=== PATIENT | male | born 1965 | race Caucasian/White ===

== ENCOUNTER 2019-01-14 14:02 | Inpatient (IN) ==
[2019-01-14] MEDS ORDERED: methylPREDNISolone 125 MG/2 ML VIAL IV STA (14:29)
[2019-01-14] MEDS ORDERED: ALBUT/IPRATROP 3MG/0.5MG NEB 3 ML VIAL NEB STA ×3 (14:31→17:14)
--- NOTE | 2019-01-14 14:40 | XRay Report ---
SINGLE VIEW CHEST CLINICAL HISTORY: Dyspnea. FINDINGS: 2 AP, portable, upright chest radiograph is compared to study dated 10/23/2018. The examinat ion is degraded by portable technique and apical lordotic positioning. The cardiomediastinal silhouet te is unremarkable noting atherosclerotic calcification of the thoracic aorta. The lungs and pleural spaces are clear. No pneumothorax is seen. The bony thorax is grossly intact. IMPRESSION: No active disease in the chest. Electronically signed by: Uriah Botello M.D. 01/14/2019 2:39 PM
--- NOTE | 2019-01-14 14:51 | Emergency Department Note ---
Entered by Rachelle Lew acting as a scribe for History of Present Illness General Chief complaint: Shortness of Breath/Dyspnea Stated complaint: SOB Time Seen by Provider: 01/14/19 14:18 Source: patient History of Present Illness Provider complaint: Shortness of Breath/Dyspnea Onset (ago): month(s) 2 Location: chest Maximum Pain Intensity: 8 Relieved By: + none Exacerbated By: + movement Associated symptoms: + denies other symptoms (Pedal edema), + cough (With white pleghm and no blood) and + other (Runny nose); no chest pain and no fever/chills The patient is a 53 year old male who presents to the Emergency Room with complaints of shortness of breath/dyspnea that began 2 months ago. The patient notes that he was at the ED 2 months ago and was diagnosed with asthmatic bronchitis and it never got any better. The patient states the symptoms are exacerbated by movement and not relieved by anything specific. The patient reports experiencing a cough that is bringing up white phlegm but no blood with a runny nose that began about 2 days ago. The patient denies experiencing any pedal edema, chest pain, or fever/chills. The patient denies taking any blood thinners or going on any recent travels. Home Medications Home Medications Medication Instructions Recorded Confirmed Type No Known Home Medications 01/14/19 01/14/19 History Allergies Allergy/AdvReac Type Severity Reaction Status Date / Time No Known Allergies Allergy Verified 01/14/19 15:12 Past Med/Surg History Medical History Bronchitis Oct 2018 Colon polyp Hand laceration involving tendon (Acute) Hyperlipidemia Kidney stones currently Surgical History H/O eye surgery Left orbit fracture with plate History of colonoscopy Family History Father Diabetes Other No pertinent family history in first degree relatives Social History Preferred Language: Latvian Communication Ability: Effective Crop Nutrition Scientist Required: No Beliefs That Will Affect Care: None marital status: Single Current Living Situation: Parent current occupational status: employed 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 and A total of 10 systems reviewed and were otherwise negative Physical Exam Vital Signs Vital Signs - 24 hr 01/14/19 14:05 01/14/19 14:38 01/14/19 14:47 Temperature 36.3 C L Temperature Source Oral Pulse Rate 114 H Pulse Rate [Right Finger] Pulse Rhythm [Right Finger] Pulse Strength [Right Finger] Respiratory Rate 20 Respiratory Effort / Characteristics Respiratory Depth Respiratory Pattern Blood Pressure 154/83 H Blood Pressure [Right Arm] Blood Pressure Mean 106 Blood Pressure Mean [Right Arm] Blood Pressure Position [Right Arm] Pulse Oximetry 91 98 98 Oxygen Delivery Method Room Air Room Air Sepsis Recent Fever Within 48 Hours No Sepsis New/Unexplained Change in Mental Status No Sepsis Action Taken by Nursing No Action Required 01/14/19 14:49 01/14/19 16:03 01/14/19 16:22 Temperature Temperature Source Pulse Rate Pulse Rate [Right Finger] 102 H 99 H 88 Pulse Rhythm [Right Finger] Regular Pulse Strength [Right Finger] Normal Respiratory Rate 18 18 18 Respiratory Effort / Characteristics Non-Labored Spontaneous Non-Labored Spontaneous Non-Labored Spontaneous Respiratory Depth Normal Respiratory Pattern Regular Blood Pressure Blood Pressure [Right Arm] 137/93 Blood Pressure Mean Blood Pressure Mean [Right Arm] 107 Blood Pressure Position [Right Arm] Lying Pulse Oximetry 94 97 97 Oxygen Delivery Method Room Air Room Air Room Air Sepsis Recent Fever Within 48 Hours Sepsis New/Unexplained Change in Mental Status Sepsis Action Taken by Nursing 01/14/19 17:25 01/14/19 17:38 Temperature Temperature Source Pulse Rate Pulse Rate [Right Finger] 96 H 102 H Pulse Rhythm [Right Finger] Regular Pulse Strength [Right Finger] Normal Respiratory Rate 18 18 Respiratory Effort / Characteristics Non-Labored Spontaneous Non-Labored Spontaneous Respiratory Depth Normal Respiratory Pattern Regular Blood Pressure Blood Pressure [Right Arm] 135/80 Blood Pressure Mean Blood Pressure Mean [Right Arm] 98 Blood Pressure Position [Right Arm] Lying Pulse Oximetry 97 97 Oxygen Delivery Method Room Air Room Air Sepsis Recent Fever Within 48 Hours Sepsis New/Unexplained Change in Mental Status Sepsis Action Taken by Nursing GENERAL: The patient is awake and alert. He is somewhat anxious appearing. EYES: The conjunctivae are clear. The pupils are round and reactive. EARS, NOSE, MOUTH AND THROAT: The nose is without any evidence of any deformity. Mucous membranes are moist tongue is midline NECK: The neck is nontender and supple. RESPIRATORY: Shallow respirations were noted. There is expiratory wheezing noted in all lung lazaro. Mild conversational dyspnea was noted. CARDIOVASCULAR: Tachycardic rate with regular rhythm was noted. No definite murmur was noted. GASTROINTESTINAL: The abdomen is soft. Abdomen is nontender MUSCULOSKELETAL/EXTREMITIES: There is no evidence of gross deformity full range of motion is noted in the hips and shoulders SKIN: There is no obvious evidence of any rash. There are no petechiae, pallor or cyanosis noted. No calf tenderness was elicited. NEUROLOGIC: Patient is awake alert and oriented x3. Course Course 1428: Past medical records reviewed. The patient was evaluated in room C04. A complete history and physical exam was performed. 1715: I reevaluated and discussed test results with the patient. The patient is still having problems breathing and will be given another breathing treatment. 1851: I spoke with Dr. Madeline Del Angel- Hospitalist about the patient's case and she will accept the patient for further evaluation. Administered Medications Discontinued Medications Albuterol (Duoneb) 3 ml NEB NOW STA Stop: 01/14/19 14:32 Last Admin: 01/14/19 14:49 Dose: 3 ml Documented by: [id number] Albuterol (Duoneb) 3 ml NEB NOW STA Stop: 01/14/19 16:14 Last Admin: 01/14/19 16:22 Dose: 3 ml Documented by: [id number] Albuterol (Duoneb) 3 ml NEB NOW STA Stop: 01/14/19 17:15 Last Admin: 01/14/19 17:24 Dose: 3 ml Documented by: [id number] Sodium Chloride (Nss 1000ml) 500 mls @ 999 mls/hr IV .Q31M ONE Stop: 01/14/19 17:44 Last Infusion: 01/14/19 17:50 Dose: 0 mls/hr Documented by: [id number] Admin: 01/14/19 17:19 Dose: 999 mls/hr Documented by: [id number] Methylprednisolone (Solumedrol) 125 mg IV NOW STA Stop: 01/14/19 14:30 Last Admin: 01/14/19 14:53 Dose: 125 mg Documented by: [id number] Critical Care Time Critical Care Time: Yes Total Critical Care Time: 60 I have personally spent approximately 60 minutes of critical care time in the direct management of this patient. This includes bedside care, interpretation of diagnostic studies, and testing, discussion with consultants, patient, and family members, and other required patient management activities. This approximate 60 minutes is in excess of all separately billable procedures. Medical Decision Making Differential Diagnosis Differential diagnosis: Etiologies such as infections, reactive airway disease, COPD, pneumonia, pleural effusion, pulmonary edema, ARDS, pneumothorax, CHF, cardiac ischemia, cardiac tamponade, dysrhythmia, anemia, pulmonary embolism, musculoskeletal, gastrointes tinal process, as well as others were entertained. Medical Records Attestation: I reviewed the patient's medical records. Home Medications Current Medication List: was personally reviewed by me Laboratory Data Attestation: I reviewed the patient's lab results. Result diagrams: 01/14/19 14:39 01/14/19 14:39 Lab Results 01/14/19 01/14/19 01/14/19 Range/Units 14:39 14:39 14:39 WBC 8.08 (4.8-10.8) K/uL RBC 4.73 (4.7-6.1) M/uL Hgb 15.7 (14.0-18.0) g/dL Hct 45.4 (42-52) % MCV 96.0 (80-100) fL MCH 33.2 (25-34) pg MCHC 34.6 (32-36) g/dL RDW Std Deviation 46.7 H (36.4-46.3) fL RDW Coeff of Ericka 13.2 (11.5-14.5) % Plt Count 237 (130-400) K/uL MPV 9.5 (7.4-10.4) fL Immature Gran % (Auto) 0.2 % Neut % (Auto) 73.5 % Lymph % (Auto) 16.2 % Orange % (Auto) 7.5 % Eos % (Auto) 2.2 % Baso % (Auto) 0.4 % Immature Gran # (Auto) 0.02 (0.00-0.02) K/uL Neut # (Auto) 5.93 (1.4-6.5) K/uL Lymph # (Auto) 1.31 (1.2-3.4) K/uL Orange # (Auto) 0.61 H (0.11-0.59) K/uL Eos # (Auto) 0.18 (0-0.5) K/uL Baso # (Auto) 0.03 (0-0.2) K/uL PT (9.0-12.0) Seconds INR (0.9-1.1) APTT (21.0-31.0) Seconds PTT Ratio VBG pH 7.38 (7.36-7.41) VBG pCO2 43 (38-50) mmHg VBG pO2 28 mmHg VBG HCO3 25 mmol/L VBG O2 Saturation < 60.0 % VBG Base Excess -0.8 mEq/L Barometric Pressure 724.8 mm/Hg Sodium (136-145) mmol/L Potassium (3.5-5.1) mmol/L Chloride (98-107) mmol/L Carbon Dioxide (21-32) mmol/L Anion Gap (3-11) BUN (7-18) mg/dl Creatinine (0.6-1.4) mg/dl Est Cr Clr Drug Dosing ml/min Est GFR ( Amer) Est GFR (Non-Af Amer) BUN/Creatinine Ratio (10-20) Glucose (70-99) mg/dl Calcium (8.5-10.1) mg/dl Magnesium Cancelled Total Bilirubin (0.2-1) mg/dl AST (15-37) U/L ALT (12-78) U/L Alkaline Phosphatase (45-117) U/L Troponin I Cancelled Total Protein (6.4-8.2) gm/dl Albumin (3.4-5.0) gm/dl Globulin (2.5-4.0) gm/dl Albumin/Globulin Ratio (0.9-2) Urine Color Urine Appearance (Clear) Urine pH (4.5-7.5) Ur Specific [place] (1.000-1.030) Urine Protein (Negative) Urine Glucose (UA) (Negative) Urine Ketones (Negative) Urine Blood (Negative) Urine Nitrite (Negative) Urine Bilirubin (Negative) Urine Urobilinogen (Negative) Ur Leukocyte Esterase (Negative) Influenza Type A (PCR) (Neg) Influenza Type B (PCR) (Neg) 01/14/19 01/14/19 01/14/19 Range/Units 14:39 14:39 15:19 WBC (4.8-10.8) K/uL RBC (4.7-6.1) M/uL Hgb (14.0-18.0) g/dL Hct (42-52) % MCV (80-100) fL MCH (25-34) pg MCHC (32-36) g/dL RDW Std Deviation (36.4-46.3) fL RDW Coeff of Ericka (11.5-14.5) % Plt Count (130-400) K/uL MPV (7.4-10.4) fL Immature Gran % (Auto) % Neut % (Auto) % Lymph % (Auto) % Orange % (Auto) % Eos % (Auto) % Baso % (Auto) % Immature Gran # (Auto) (0.00-0.02) K/uL Neut # (Auto) (1.4-6.5) K/uL Lymph # (Auto) (1.2-3.4) K/uL Orange # (Auto) (0.11-0.59) K/uL Eos # (Auto) (0-0.5) K/uL Baso # (Auto) (0-0.2) K/uL PT 10.1 (9.0-12.0) Seconds INR 1.0 (0.9-1.1) APTT 23.8 (21.0-31.0) Seconds PTT Ratio 0.9 VBG pH (7.36-7.41) VBG pCO2 (38-50) mmHg VBG pO2 mmHg VBG HCO3 mmol/L VBG O2 Saturation % VBG Base Excess mEq/L Barometric Pressure mm/Hg Sodium 135 L (136-145) mmol/L Potassium 3.6 (3.5-5.1) mmol/L Chloride 106 (98-107) mmol/L Carbon Dioxide 24 (21-32) mmol/L Anion Gap 5.0 (3-11) BUN 11 (7-18) mg/dl Creatinine 1.05 (0.6-1.4) mg/dl Est Cr Clr Drug Dosing 101.7 ml/min Est GFR ( Amer) 92.8 Est GFR (Non-Af Amer) 80.1 BUN/Creatinine Ratio 10.2 (10-20) Glucose 105 H (70-99) mg/dl Calcium 9.2 (8.5-10.1) mg/dl Magnesium 2.2 Total Bilirubin 1.8 H (0.2-1) mg/dl AST 233 H (15-37) U/L ALT 877 H (12-78) U/L Alkaline Phosphatase 174 H (45-117) U/L Troponin I < 0.015 Total Protein 7.5 (6.4-8.2) gm/dl Albumin 4.0 (3.4-5.0) gm/dl Globulin 3.5 (2.5-4.0) gm/dl Albumin/Globulin Ratio 1.1 (0.9-2) Urine Color Dark Yellow Urine Appearance Clear (Clear) Urine pH 5.5 (4.5-7.5) Ur Specific [place] 1.023 (1.000-1.030) Urine Protein Negative (Negative) Urine Glucose (UA) Negative (Negative) Urine Ketones Trace H (Negative) Urine Blood Negative (Negative) Urine Nitrite Negative (Negative) Urine Bilirubin 1+ H (Negative) Urine Urobilinogen Negative (Negative) Ur Leukocyte Esterase Negative (Negative) Influenza Type A (PCR) (Neg) Influenza Type B (PCR) (Neg) 01/14/19 Range/Units 16:35 WBC (4.8-10.8) K/uL RBC (4.7-6.1) M/uL Hgb (14.0-18.0) g/dL Hct (42-52) % MCV (80-100) fL MCH (25-34) pg MCHC (32-36) g/dL RDW Std Deviation (36.4-46.3) fL RDW Coeff of Ericka (11.5-14.5) % Plt Count (130-400) K/uL MPV (7.4-10.4) fL Immature Gran % (Auto) % Neut % (Auto) % Lymph % (Auto) % Orange % (Auto) % Eos % (Auto) % Baso % (Auto) % Immature Gran # (Auto) (0.00-0.02) K/uL Neut # (Auto) (1.4-6.5) K/uL Lymph # (Auto) (1.2-3.4) K/uL Orange # (Auto) (0.11-0.59) K/uL Eos # (Auto) (0-0.5) K/uL Baso # (Auto) (0-0.2) K/uL PT (9.0-12.0) Seconds INR (0.9-1.1) APTT (21.0-31.0) Seconds PTT Ratio VBG pH (7.36-7.41) VBG pCO2 (38-50) mmHg VBG pO2 mmHg VBG HCO3 mmol/L VBG O2 Saturation % VBG Base Excess mEq/L Barometric Pressure mm/Hg Sodium (136-145) mmol/L Potassium (3.5-5.1) mmol/L Chloride (98-107) mmol/L Carbon Dioxide (21-32) mmol/L Anion Gap (3-11) BUN (7-18) mg/dl Creatinine (0.6-1.4) mg/dl Est Cr Clr Drug Dosing ml/min Est GFR ( Amer) Est GFR (Non-Af Amer) BUN/Creatinine Ratio (10-20) Glucose (70-99) mg/dl Calcium (8.5-10.1) mg/dl Magnesium Total Bilirubin (0.2-1) mg/dl AST (15-37) U/L ALT (12-78) U/L Alkaline Phosphatase (45-117) U/L Troponin I Total Protein (6.4-8.2) gm/dl Albumin (3.4-5.0) gm/dl Globulin (2.5-4.0) gm/dl Albumin/Globulin Ratio (0.9-2) Urine Color Urine Appearance (Clear) Urine pH (4.5-7.5) Ur Specific [place] (1.000-1.030) Urine Protein (Negative) Urine Glucose (UA) (Negative) Urine Ketones (Negative) Urine Blood (Negative) Urine Nitrite (Negative) Urine Bilirubin (Negative) Urine Urobilinogen (Negative) Ur Leukocyte Esterase (Negative) Influenza Type A (PCR) Neg for Influ A (Neg) Influenza Type B (PCR) Neg for Influ B (Neg) Imaging Data Radiologist's Impression: Radiology results as stated below per my review and the radiologist's interpretation: SINGLE VIEW CHEST CLINICAL HISTORY: Dyspnea. FINDINGS: 2 AP, portable, upright chest radiograph is compared to study dated 10/23/2018. The examination is degraded by portable technique and apical lordotic positioning. The cardiomediastinal silhouette is unremarkable noting atherosclerotic calcification of the thoracic aorta. The lungs and pleural spaces are clear. No pneumothorax is seen. The bony thorax is grossly intact. IMPRESSION: No active disease in the chest. Electronically signed by: Uriah Botello M.D. 01/14/2019 2:39 PM ECG Data Attestation: I personally reviewed and interpreted this ECG as follows: Indication: + SOB/dyspnea Rate (beats per minute): [address] segments: + Normal ST segments ECG Findings: no PACs and no PVCs Comparison ECG Date: from (10/23/18) Change: no significant change Blood Pressure Blood Pressure Findings: Elevated blood pressure Blood Pressure Disposition: further management by hospitalist ELMA Norris The patient is a 53-year-old male who presented to the emergency department with complaints of shortness of breath. The patient describes tightness and wheezing. The patient has had symptoms which have been ongoing for quite some time. He does have a history of smoking and was seen in our facility 2 months ago with similar complaints. The patient has since stopped smoking. His history and physical exam do appear to be consistent with COPD. The patient was treated with multiple bronchodilator nebulizers as well as IV steroids and IV fluids. He was reevaluated multiple times. He continues to have very significant symptoms especially with any exertion. Between the second and third DuoNeb the patient did have an oxygen saturation of 87 to 80% on room air. At rest and after his third nebulizer treatment this did improve. I discussed the patient's laboratory and radiographic studies with him. I discussed his case with the on-call [facility] hospitalist. They have agreed to evaluate the patient in the emergency department for further management disposition. Impression & Plan COPD exacerbation, Shortness of breath Discharge Plan Visit Data Chief Complaint: Shortness of Breath/Dyspnea Stated Complaint: SOB ED Provider: Shahzad Stout Discharge Problem: COPD exacerbation, Shortness of breath Forms Stand Alone Forms: My [facility] [employer] Prescriptions Prescriptions: No Action No Known Home Medications RF: 0 The scribe's documentation has been prepared under my direction and personally reviewed by me in its entirety. I confirm that the note above accurately reflects all work, treatment, procedures, and medical decision making performed by me.
[2019-01-14 14:53] LABS: Basophils # (auto) 0.03 K/uL (0-0.2); Basophils % (auto) 0.4 %; Eosinophils # (auto) 0.18 K/uL (0-0.5); Eosinophils % (auto) 2.2 %; Hematocrit (blood only) 45.4 % (42-52); Hemoglobin 15.7 g/dL (14.0-18.0); Immature Granulocytes # (auto) 0.02 K/uL (0.00-0.02); Immature Granulocytes % (auto) 0.2 %; Lymphocytes # (auto) 1.31 K/uL (1.2-3.4); Lymphocytes % (auto) 16.2 %; Mean Corpuscular Hemoglobin 33.2 pg (25-34); Mean Corpuscular Hgb Conc 34.6 g/dL (32-36); Mean Platelet Volume 9.5 fL (7.4-10.4); Monocytes # (auto) 0.61 K/uL (0.11-0.59); Monocytes % (auto) 7.5 %; Neutrophils # (auto) 5.93 K/uL (1.4-6.5); Neutrophils % (auto) 73.5 %; Platelet Count 237 K/uL (130-400); RDW Coefficient of Variation 13.2 % (11.5-14.5); RDW Standard Deviation 46.7 fL (36.4-46.3); Red Blood Count 4.73 M/uL (4.7-6.1); White Blood Count 8.08 K/uL (4.8-10.8)
[2019-01-14 15:04] LABS: Partial Thromboplastin Ratio 0.9; Partial Thromboplastin Time 23.8 Seconds (21.0-31.0); Prothrombin Time 10.1 Seconds (9.0-12.0)
[2019-01-14 15:14] LABS: Base Excess VBG -0.8 mEq/L; HCO3 VBG 25 mmol/L; PCO2 VBG 43 mmHg (38-50); PO2 VBG 28 mmHg; pH VBG 7.38 (7.36-7.41)
[2019-01-14 15:15] LABS: Oxygen Saturation VBG < 60.0 %
[2019-01-14 15:29] LABS: Alanine Aminotransferase 877 U/L (12-78); Albumin Globulin Ratio 1.1 (0.9-2); Alkaline Phosphatase 174 U/L (45-117); Aspartate Aminotransferase 233 U/L (15-37); BUN Creatinine Ratio 10.2 (10-20); Bilirubin,Total 1.8 mg/dl (0.2-1); Blood Urea Nitrogen 11 mg/dl (7-18); Calcium 9.2 mg/dl (8.5-10.1); Carbon Dioxide 24 mmol/L (21-32); Chloride 106 mmol/L (98-107); Creatinine Clr Calc Pharmacy 101.7 ml/min; Est GFR (African American) 92.8; Est GFR (Non-African American) 80.1; Globulin 3.5 gm/dl (2.5-4.0); Glucose 105 mg/dl (70-99); Magnesium 2.2 mg/dl (1.8-2.4); Potassium 3.6 mmol/L (3.5-5.1); Sodium 135 mmol/L (136-145); Total Protein 7.5 gm/dl (6.4-8.2); Troponin I < 0.015 ng/ml (0-0.045)
[2019-01-14 15:50] LABS: Appearance Urine Clear (Clear); Blood Urine Negative (Negative); Color Urine Dark Yellow; Glucose Urine UA Negative (Negative); Ketones Urine Trace (Negative); Leukocyte Esterase Urine Negative (Negative); Nitrite Urine Negative (Negative); Protein Urine Negative (Negative); Specific Gravity Urine 1.023 (1.000-1.030); Urobilinogen Urine Negative (Negative); pH Urine 5.5 (4.5-7.5)
[2019-01-14 15:58] LABS: Bilirubin Urine 1+ (Negative)
[2019-01-14 15:59] LABS: Ictotest Urine Positive (Negative)
[2019-01-14 17:12] LABS: Influenza A virus by PCR Neg for Influ A (Neg); Influenza B virus by PCR Neg for Influ B (Neg)
[2019-01-14] MEDS ORDERED: SODIUM CHLORIDE 0.9% 1000ML 500 ML IV ONE (17:14)
--- NOTE | 2019-01-14 20:27 | History & Physical Report ---
Date of Service January 14, 2019 Assessment & Plan (1) Shortness of breath: 53-year-old male was admitted on 14 January 2019 for shortness of breath and COPD exacerbation Shortness of breath, COPD exacerbation: Some level of shortness of breath for the past 10 weeks, perhaps worse in the past couple of days. No overt CP with this. Do not suspect ACS. Likely has completely uncontrolled COPD at this point, requiring both acute management and arranging close follow-up care. - In ED, afebrile, borderline regular tachycardia, not tachypneic, and normal room SpO2. WBC 8. Influenza negative. VBG was normal. EKG NSR 95, TnI negative. pCXR clear. - In ED, treated with DuoNeb x3, Solu-Medrol 125 mg IV x1, and 500 mL NS IVF. - Will keep on scheduled DuoNebs, Solu-Medrol 40 mg IV twice daily, azithromycin x 5 days, and supplemental O2 prn. Check procalcitonin. Start flovent as well. Transaminitis: Elevated AST, ALT, alk phos, and total bilirubin. Normal INR. Hepatic steatosis seen on renal ultrasound. Denies overt abdominal pain and is non-tender in RUQ. - Will order hepatitis panel, Tylenol level, TIBC, transferrin. Recheck LFTs in AM. - On speaking with staff, recommended consider RUQ u/s in AM if LFTs still elevated. Diarrhea: Non-bloody watery diarrhea for about 8 hours, but now resolved for 12+ hours. Is borderline tachycardic with some minimal left-sided abdominal tenderness. Non-peritoneal. Most common source would be viral if this is truly transient. - Will provide some further IVF bolus and recheck electrolytes in a.m. Ongoing medical issues: - Nephrolithiasis, chronic outlet obstruction: Pre-scheduled renal ultrasound noted no evidence of hydronephrosis but does have bladder wall thickening. Has previously been on tamsulosin. Code status: Full code. Diet: Regular. DVT prophy: Lovenox. PT/OT: Deferred. Disbo: Admit to MedSurg for observation. (2) COPD exacerbation: (3) Transaminitis: (4) Diarrhea: (5) Nephrolithiasis: History of Present Illness Primary Care Provider: Saloni Chow 53-year-old male presents with ongoing, perhaps acutely worsening, shortness of breath. - Patient says he was initially seen for this around its onset in the [facility] ED back in early October. Was diagnosed with bronchitis and discharged on prednisone. Patient says he is uninsured, [facility] and [facility] over the past few days because it never quite improved. He was referred here due to his current symptoms. - Patient presently notes an ongoing non-bloody and rarely productive cough, shortness of breath at baseline and worse with exertion, but no associated chest pain. - On review of systems, patient notes that he had about 8 hours worth of very watery non-bloody stools this past overnight. Denies any associated fevers, abdominal pain, or known new foods or sick contacts. He did have some mild nausea earlier this morning that resolved. Denied any emesis. - Furthermore, patient says that he has a history of a kidney stone for which she has seen urology. The renal ultrasound obtained today was prescheduled. He says that over the past 24 hours his urine is changed from a darker color to more clear. - Past medical history includes bronchitis, nephrolithiasis, hyperlipidemia, colon polyp, small hiatal hernia. - Past surgical history includes colonoscopy, left orbital fracture. - Social history includes smoking 1 pack/day for 25 years (but quit in Oct 2018) as well as chewing tobacco (ongoing). History of heavy alcohol use but quit in 1992. Denies illicit drug use. 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 Lives with parents. Allergies Allergy/AdvReac Type Severity Reaction Status Date / Time No Known Allergies Allergy Verified 01/14/19 15:12 Home Medications Home Medications Medication Instructions Recorded Confirmed Type No Known Home Medications 01/14/19 01/14/19 History Past Med/Surg History Medical History Bronchitis Oct 2018 Colon polyp Hand laceration involving tendon (Acute) Hyperlipidemia Kidney stones currently Surgical History H/O eye surgery Left orbit fracture with plate History of colonoscopy Family History Father Diabetes Other No pertinent family history in first degree relatives Social History Preferred Language: Croatian Communication Ability: Effective Vice President Regulatory Required: No Beliefs That Will Affect Care: None marital status: Single Current Living Situation: Parent current occupational status: employed 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 Other Information That Helps Us Care for You: No Feels Safe at Home: Yes Safety Concerns: Feels Safe At This Time Smoking Status: Former smoker Tobacco Type: smokeless tobacco ; Cigarettes Per Day: 1 ppd x 15 years ; Do You Dip or Chew Tobacco: Yes ; Smoking End Date: October 2018 ; Second Hand Exposure: Yes (At work) ; Tobacco Cessation Education Requested by Patient: No Hx Alcohol Use: No Hx Substance Use: No Review of Systems Review of Systems: Constitutional: Denies fevers, chills, focal weakness Eyes: Denies any visual loss or diplopia ENT: Denies any ear/nose/throat pain or difficulty speaking or swallowing Respiratory: Positive dyspnea and cough. Denies hemoptysis. Cardiovascular: Denies any chest pain or feeling of edema Gastrointestinal: Positive left-sided abdominal discomfort. Positive nausea and diarrhea. Denies vomiting. Musculoskeletal: Denies any acute extremity pains, myalgias, or focal weakness Skin: Denies any known acute rashes or lesions Neuro: Denies any headache, acute focal weakness or numbness, or difficulties with speech or swallow. Physical Exam Physical Exam: GENERAL: Awake, alert, well-appearing, in no acute distress HENT: Normocephalic, atraumatic. Oropharynx unremarkable. EYES: Normal conjunctiva. Sclera non-icteric. NECK: Inspection normal. Supple and full ROM. No nuchal rigidity. CARDIAC: +S1S2 borderline but regular tachycardia, no murmurs. RESPIRATORY: Diffuse expiratory and expiratory wheezing. Very harsh dry cough. On room air. GI: +BS, soft, non-distended. No rebound or guarding. Positive mild left upper quadrant tenderness to palpation. No right upper quadrant tenderness. Negative Casillas's. EXTREMITIES: No pedal edema or calf tenderness. Moving all extremities naturally and easily. NEURO: No gross neuro deficits. Results & Data Vital Signs (Past 12 Hours) Vital Signs Temp Pulse Pulse Resp BP BP Pulse Ox 01/14/19 19:26 102 H 18 140/88 97 01/14/19 18:38 105 H 18 128/78 98 01/14/19 17:38 102 H 18 135/80 97 01/14/19 17:25 96 H 18 97 01/14/19 16:22 88 18 97 01/14/19 16:03 99 H 18 137/93 97 01/14/19 14:49 102 H 18 94 01/14/19 14:47 98 01/14/19 14:38 98 01/14/19 14:05 36.3 C L 114 H 20 154/83 H 91 Laboratory Results 01/14/19 01/14/19 01/14/19 Range/Units 16:35 15:19 14:39 WBC (4.8-10.8) K/uL RBC (4.7-6.1) M/uL Hgb (14.0-18.0) g/dL Hct (42-52) % MCV (80-100) fL MCH (25-34) pg MCHC (32-36) g/dL RDW Std Deviation (36.4-46.3) fL RDW Coeff of Ericka (11.5-14.5) % Plt Count (130-400) K/uL MPV (7.4-10.4) fL Immature Gran % (Auto) % Neut % (Auto) % Lymph % (Auto) % [place] % (Auto) % Eos % (Auto) % Baso % (Auto) % Immature Gran # (Auto) (0.00-0.02) K/uL Neut # (Auto) (1.4-6.5) K/uL Lymph # (Auto) (1.2-3.4) K/uL [place] # (Auto) (0.11-0.59) K/uL Eos # (Auto) (0-0.5) K/uL Baso # (Auto) (0-0.2) K/uL PT (9.0-12.0) Seconds INR (0.9-1.1) APTT (21.0-31.0) Seconds PTT Ratio VBG pH (7.36-7.41) VBG pCO2 (38-50) mmHg VBG pO2 mmHg VBG HCO3 mmol/L VBG O2 Saturation % VBG Base Excess mEq/L Barometric Pressure mm/Hg Sodium 135 L (136-145) mmol/L Potassium 3.6 (3.5-5.1) mmol/L Chloride 106 (98-107) mmol/L Carbon Dioxide 24 (21-32) mmol/L Anion Gap 5.0 (3-11) BUN 11 (7-18) mg/dl Creatinine 1.05 (0.6-1.4) mg/dl Est Cr Clr Drug Dosing 101.7 ml/min Est GFR ( Amer) 92.8 Est GFR (Non-Af Amer) 80.1 BUN/Creatinine Ratio 10.2 (10-20) Glucose 105 H (70-99) mg/dl Calcium 9.2 (8.5-10.1) mg/dl Magnesium 2.2 Total Bilirubin 1.8 H (0.2-1) mg/dl AST 233 H (15-37) U/L ALT 877 H (12-78) U/L Alkaline Phosphatase 174 H (45-117) U/L Troponin I < 0.015 Total Protein 7.5 (6.4-8.2) gm/dl Albumin 4.0 (3.4-5.0) gm/dl Globulin 3.5 (2.5-4.0) gm/dl Albumin/Globulin Ratio 1.1 (0.9-2) Urine Color Dark Yellow Urine Appearance Clear (Clear) Urine pH 5.5 (4.5-7.5) Ur Specific [place] 1.023 (1.000-1.030) Urine Protein Negative (Negative) Urine Glucose (UA) Negative (Negative) Urine Ketones Trace H (Negative) Urine Blood Negative (Negative) Urine Nitrite Negative (Negative) Urine Bilirubin 1+ H (Negative) Urine Urobilinogen Negative (Negative) Ur Leukocyte Esterase Negative (Negative) Influenza Type A (PCR) Neg for Influ A (Neg) Influenza Type B (PCR) Neg for Influ B (Neg) 01/14/19 01/14/19 01/14/19 Range/Units 14:39 14:39 14:39 WBC 8.08 (4.8-10.8) K/uL RBC 4.73 (4.7-6.1) M/uL Hgb 15.7 (14.0-18.0) g/dL Hct 45.4 (42-52) % MCV 96.0 (80-100) fL MCH 33.2 (25-34) pg MCHC 34.6 (32-36) g/dL RDW Std Deviation 46.7 H (36.4-46.3) fL RDW Coeff of Ericka 13.2 (11.5-14.5) % Plt Count 237 (130-400) K/uL MPV 9.5 (7.4-10.4) fL Immature Gran % (Auto) 0.2 % Neut % (Auto) 73.5 % Lymph % (Auto) 16.2 % [place] % (Auto) 7.5 % Eos % (Auto) 2.2 % Baso % (Auto) 0.4 % Immature Gran # (Auto) 0.02 (0.00-0.02) K/uL Neut # (Auto) 5.93 (1.4-6.5) K/uL Lymph # (Auto) 1.31 (1.2-3.4) K/uL [place] # (Auto) 0.61 H (0.11-0.59) K/uL Eos # (Auto) 0.18 (0-0.5) K/uL Baso # (Auto) 0.03 (0-0.2) K/uL PT 10.1 (9.0-12.0) Seconds INR 1.0 (0.9-1.1) APTT 23.8 (21.0-31.0) Seconds PTT Ratio 0.9 VBG pH 7.38 (7.36-7.41) VBG pCO2 43 (38-50) mmHg VBG pO2 28 mmHg VBG HCO3 25 mmol/L VBG O2 Saturation < 60.0 % VBG Base Excess -0.8 mEq/L Barometric Pressure 724.8 mm/Hg Sodium (136-145) mmol/L Potassium (3.5-5.1) mmol/L Chloride (98-107) mmol/L Carbon Dioxide (21-32) mmol/L Anion Gap (3-11) BUN (7-18) mg/dl Creatinine (0.6-1.4) mg/dl Est Cr Clr Drug Dosing ml/min Est GFR ( Amer) Est GFR (Non-Af Amer) BUN/Creatinine Ratio (10-20) Glucose (70-99) mg/dl Calcium (8.5-10.1) mg/dl Magnesium Total Bilirubin (0.2-1) mg/dl AST (15-37) U/L ALT (12-78) U/L Alkaline Phosphatase (45-117) U/L Troponin I Total Protein (6.4-8.2) gm/dl Albumin (3.4-5.0) gm/dl Globulin (2.5-4.0) gm/dl Albumin/Globulin Ratio (0.9-2) Urine Color Urine Appearance (Clear) Urine pH (4.5-7.5) Ur Specific [place] (1.000-1.030) Urine Protein (Negative) Urine Glucose (UA) (Negative) Urine Ketones (Negative) Urine Blood (Negative) Urine Nitrite (Negative) Urine Bilirubin (Negative) Urine Urobilinogen (Negative) Ur Leukocyte Esterase (Negative) Influenza Type A (PCR) (Neg) Influenza Type B (PCR) (Neg) 01/14/19 Range/Units 14:39 WBC (4.8-10.8) K/uL RBC (4.7-6.1) M/uL Hgb (14.0-18.0) g/dL Hct (42-52) % MCV (80-100) fL MCH (25-34) pg MCHC (32-36) g/dL RDW Std Deviation (36.4-46.3) fL RDW Coeff of Ericka (11.5-14.5) % Plt Count (130-400) K/uL MPV (7.4-10.4) fL Immature Gran % (Auto) % Neut % (Auto) % Lymph % (Auto) % [place] % (Auto) % Eos % (Auto) % Baso % (Auto) % Immature Gran # (Auto) (0.00-0.02) K/uL Neut # (Auto) (1.4-6.5) K/uL Lymph # (Auto) (1.2-3.4) K/uL [place] # (Auto) (0.11-0.59) K/uL Eos # (Auto) (0-0.5) K/uL Baso # (Auto) (0-0.2) K/uL PT (9.0-12.0) Seconds INR (0.9-1.1) APTT (21.0-31.0) Seconds PTT Ratio VBG pH (7.36-7.41) VBG pCO2 (38-50) mmHg VBG pO2 mmHg VBG HCO3 mmol/L VBG O2 Saturation % VBG Base Excess mEq/L Barometric Pressure mm/Hg Sodium (136-145) mmol/L Potassium (3.5-5.1) mmol/L Chloride (98-107) mmol/L Carbon Dioxide (21-32) mmol/L Anion Gap (3-11) BUN (7-18) mg/dl Creatinine (0.6-1.4) mg/dl Est Cr Clr Drug Dosing ml/min Est GFR ( Amer) Est GFR (Non-Af Amer) BUN/Creatinine Ratio (10-20) Glucose (70-99) mg/dl Calcium (8.5-10.1) mg/dl Magnesium Cancelled Total Bilirubin (0.2-1) mg/dl AST (15-37) U/L ALT (12-78) U/L Alkaline Phosphatase (45-117) U/L Troponin I Cancelled Total Protein (6.4-8.2) gm/dl Albumin (3.4-5.0) gm/dl Globulin (2.5-4.0) gm/dl Albumin/Globulin Ratio (0.9-2) Urine Color Urine Appearance (Clear) Urine pH (4.5-7.5) Ur Specific [place] (1.000-1.030) Urine Protein (Negative) Urine Glucose (UA) (Negative) Urine Ketones (Negative) Urine Blood (Negative) Urine Nitrite (Negative) Urine Bilirubin (Negative) Urine Urobilinogen (Negative) Ur Leukocyte Esterase (Negative) Influenza Type A (PCR) (Neg) Influenza Type B (PCR) (Neg) Medications Administered Discontinued Medications Albuterol (Duoneb) 3 ml NEB NOW STA Stop: 01/14/19 14:32 Last Admin: 01/14/19 14:49 Dose: 3 ml Documented by: [id number] Albuterol (Duoneb) 3 ml NEB NOW STA Stop: 01/14/19 16:14 Last Admin: 01/14/19 16:22 Dose: 3 ml Documented by: [id number] Albuterol (Duoneb) 3 ml NEB NOW STA Stop: 01/14/19 17:15 Last Admin: 01/14/19 17:24 Dose: 3 ml Documented by: [id number] Sodium Chloride (Nss 1000ml) 500 mls @ 999 mls/hr IV .Q31M ONE Stop: 01/14/19 17:44 Last Infusion: 01/14/19 17:50 Dose: 0 mls/hr Documented by: [id number] Admin: 01/14/19 17:19 Dose: 999 mls/hr Documented by: [id number] Methylprednisolone (Solumedrol) 125 mg IV NOW STA Stop: 01/14/19 14:30 Last Admin: 01/14/19 14:53 Dose: 125 mg Documented by: [id number] Code Status & VTE Plan Code Status Full code VTE Prophylaxis Plan VTE Prophylaxis will be ordered: Yes Supervising Physician Co-Signing Physician Notes I obtained a history and physical examination during my face to face encounter with the patient. I answered all of the patient's questions. Patient appears to have sputum production yesterday, it was clear, and about the amount of a tablespoon. He denies any orthopnea and actually feels better when he lies down. On exam, he is actively wheezing bilaterally. Will treat for COPD exacerbation, given how he has history of smoking. He has not be formally diagnosed as an outpatient however and will require outpatient followup with pulmonary, and PFTs once he improves. He will likely require maintenance medicine and will place him on advair. Will switch him to xopenex as he is tachycardic likely from the albuterol. Also stopping short acting anti cholinergic as studies have not shown this to be beneficial to COPD exacerbations once admitted. Will place on azithromycin and ceftriaxone. Will start ceftriaxone in the AM as patient received bolus of LR, as to not interact with the calcium. will continue solumedrol, anticipate quick taper. Will admit patient to medical. Will be full code.
[2019-01-14] MEDS ORDERED: AZITHROMYCIN 250 MG TAB PO ONE (21:06)
[2019-01-14] MEDS ORDERED: LACTATED RINGER'S 1,000 ML IV ONE (21:06)
[2019-01-14] MEDS ORDERED: ONDANSETRON INJ 2 MG/ML 2 ML VIAL IV PRN (21:06)
[2019-01-14 21:47] LABS: Total Iron Binding Capacity 354 mcg/dl (250-450); Transferrin 292 mg/dl (200-360)
[2019-01-14] MEDS: ENOXAPARIN INJ 40 MG/0.4 ML SYR SQ SCH (22:07)
--- NOTE | 2019-01-14 22:32 | Billing Data ---
Coding Level of Care Code 25301 Initial Inpt Care Lvl 3
[2019-01-14] MEDS: cefTRIAXone SODIUM 2,000 MG in DEXTROSE 5% 50 ML IV SCH (22:47)
[2019-01-14] MEDS ORDERED: ALBUT/IPRATROP 3MG/0.5MG NEB 3 ML VIAL NEB SCH (23:00)
[2019-01-15] MEDS: LEVALBUTEROL HCL 1.25 MG/3 ML NEB NEB SCH ×4 (01:17→19:38)
[2019-01-15] MEDS ORDERED: ACETAMINOPHEN 325 MG TAB PO PRN (04:39)
[2019-01-15] MEDS ORDERED: ACETAMINOPHEN 325 MG TAB ONE (04:49)
[2019-01-15] MEDS: methylPREDNISolone 40 MG in SYRINGE 0 ML IV SCH ×2 (06:09→17:36)
[2019-01-15 07:31] LABS: Hematocrit (blood only) 41.4 % (42-52); Hemoglobin 14.1 g/dL (14.0-18.0); Immature Granulocytes # (auto) 0.02 K/uL (0.00-0.02); Immature Granulocytes % (auto) 0.2 %; Lymphocytes # (auto) 0.97 K/uL (1.2-3.4); Lymphocytes % (auto) 10.1 %; Mean Corpuscular Hemoglobin 32.4 pg (25-34); Mean Corpuscular Hgb Conc 34.1 g/dL (32-36); Mean Corpuscular Volume 95.2 fL (80-100); Mean Platelet Volume 9.8 fL (7.4-10.4); Monocytes # (auto) 0.55 K/uL (0.11-0.59); Monocytes % (auto) 5.7 %; Neutrophils # (auto) 8.04 K/uL (1.4-6.5); Platelet Count 231 K/uL (130-400); RDW Coefficient of Variation 13.6 % (11.5-14.5); RDW Standard Deviation 47.2 fL (36.4-46.3); Red Blood Count 4.35 M/uL (4.7-6.1); White Blood Count 9.58 K/uL (4.8-10.8)
[2019-01-15 08:06] LABS: Albumin Level 3.5 gm/dl (3.4-5.0); BUN Creatinine Ratio 14.7 (10-20); Calcium 9.2 mg/dl (8.5-10.1); Creatinine Clr Calc Pharmacy 122.8 ml/min; Est GFR (African American) 113.9; Est GFR (Non-African American) 98.3; Magnesium 1.9 mg/dl (1.8-2.4); Potassium 4.6 mmol/L (3.5-5.1)
[2019-01-15 08:09] LABS: Bilirubin,Total 0.8 mg/dl (0.2-1); Globulin 3.5 gm/dl (2.5-4.0); Phosphorus 3.1 mg/dl (2.5-4.9)
[2019-01-15 09:32] LABS: Hepatitis B Surface Ab Quant < 3.10 mIU/mL (>or=10mIU/mL Immune); Hepatitis B Surface Antibody Non-Immune
[2019-01-15 09:43] LABS: Hepatitis B Surface Antigen Neg (Neg)
[2019-01-15 10:11] LABS: Act87 Hepatitis C IgG Screen Neg (Neg)
[2019-01-15] MEDS: FLUTICASONE HFA 110MCG INHALER INH SCH ×2 (10:17→20:17)
--- NOTE | 2019-01-15 14:37 | Ultrasound Report ---
US liver CLINICAL HISTORY: elevated LFTs elevated liver function tests COMPARISON STUDY: 01/14/2019 FINDINGS: Fatty replacement of the liver. This is unchanged compared to the prior study. Combination of gallstones and sludge within the gallbladder lumen. Common bile duct measures 4 mm. Right kidney is negative for hydronephrosis. Several small renal cyst measuring up to 1.2 cm. IMPRESSION: 1. Fatty replacement of the liver. 2. Gallstones and sludge within the gallbladder lumen. 3. Normal caliber bile ducts. 4. Several small renal cyst. No evidence for hydronephrosis. The above report was generated using voice recognition software. It may contain grammatical, syntax or spelling errors. Electronically signed by: Michael Levy M.D. 01/15/2019 2:35 PM
[2019-01-15] MEDS ORDERED: BENZONATATE 100 MG CAPSULE PO PRN (17:11)
--- NOTE | 2019-01-15 18:11 | Hospitalist Progress Note ---
Date of Service January 15, 2019 Assessment & Plan (1) Shortness of breath: 53-year-old male admitted on 14 January 2019 for shortness of breath and COPD exacerbation Some level of shortness of breath for the past 10 weeks, perhaps worse in the past couple of days prior to admission. No overt CP with this. Do not suspect ACS. Likely has completely uncontrolled COPD at this point, requiring both acute management and arranging close follow-up care. - In ED, afebrile, borderline regular tachycardia, not tachypneic, and normal room SpO2. WBC 8. Influenza negative. VBG was normal. EKG NSR 95, TnI negative. pCXR clear. - In ED, treated with DuoNeb x3, Solu-Medrol 125 mg IV x1, and 500 mL NS IVF. PCT negative -somewhat improved today but still with diffuse wheezing, bad cough Remains off O2 -continue Solu-Medrol 40 mg IV twice daily -continue azithromycin x 5 days, but can dc ceftriaxone -continue levalbuterol nebs -Started flovent as well -add tessalon perles -will need PFTs as outpt (2) COPD exacerbation: as above -quit smoking many years ago (3) Transaminitis: Transaminitis: Elevated AST, ALT, alk phos, and total bilirubin on admission. Normal INR. Hepatic steatosis seen on renal ultrasound. APAP negative With recurrent epigastric abd pain ongoing for 2 years Had EGD/colonoscopy that were with some polyps but not mch to explain pain With LFTs trending downward today, last episode of abd pain 2-3 days prior to admission, LFTs likely trending down after passage of gallstone RUQ US here with GB sludge and stones, no CBD dilatation -no need for urgent surgical evaluation especially in setting of COPD exacerbation -follow LFTs in AM -f/u results of hepatitis panel -plan for Surgery eval as outpt for elective cholecystectomy unless develops recurrent abd pain here or has evidence of biliary obstruction (4) Cholelithiasis: as above, is symptomatic (5) Diarrhea: Diarrhea: Non-bloody watery diarrhea for about 8 hours prior to admission, could be related to gallstone passage as above -now resolved (6) Nephrolithiasis: Ongoing medical issues: - Nephrolithiasis, chronic outlet obstruction: Pre-scheduled renal ultrasound noted no evidence of hydronephrosis but does have bladder wall thickening. Has previously been on tamsulosin. -f/u as outpt (7) DVT prophylaxis: Code status: Full code. Diet: Regular. DVT prophy: Lovenox. Dispo: continued stay Subjective Pt feeling better but still SOB, still coughing so hard it hurts. Not bringing up sputum at all. No fevers here. Is concerned about his ongoing, intermittent epigastric abdominal pain that will last anywhere from minutes to hours, is severe in nature, associated with diaphoresis. He has tried changing his diet and cutting out fatty foods without any success. He had recent EGD and colonoscopy which did not show any cause of pain. His last episode was 2-3 days ago now. Reviewed LFTs and liver US with him and his father at bedside. Pt denies any EtOH use since 20+ years ago, no illicit drug use. He had no recent steroid or antibiotic use prior to admission. Review of Systems Review of Systems: All systems reviewed & are unremarkable except as noted in HPI & below Physical Exam Constitutional: WD/WN, vitals as above Eyes: + anicteric sclerae ENMT: external ear and nose normal, oropharynx normal Neck: trachea midline, no thyromegaly Respiratory: normal respiratory effort; no labored breathing Auscultation: + rhonchi (diffuse) and + wheezes (diffuse exp wheezes) Cardiovascular: RRR, no murmur, no edema Chest (Breasts): Chest: normal inspection of chest Gastrointestinal (Abdomen): normal bowel sounds, soft, nontender, no hepatosplenomegaly Musculoskeletal: Extremities: extremities normal to inspection; no cyanosis and no clubbing Skin: no rashes, warm and dry Neurologic: moves all extremities and awake; no focal motor deficits Psychiatric: A+Ox3, euthymic affect Lymphatic: no lymphedema Results & Data Vital Signs (Past 12 Hours) Vital Signs Temp Pulse Resp BP BP Pulse Ox 01/15/19 15:38 36.8 C 105 H 18 134/79 93 01/15/19 13:29 108 H 16 96 01/15/19 11:01 36.7 C 116 H 18 129/76 92 01/15/19 07:48 36.7 C 108 H 18 131/69 92 01/15/19 07:04 104 H 18 94 Laboratory Results 01/15/19 01/15/19 01/15/19 Range/Units 07:04 07:04 07:04 WBC 9.58 (4.8-10.8) K/uL RBC 4.35 L (4.7-6.1) M/uL Hgb 14.1 (14.0-18.0) g/dL Hct 41.4 L (42-52) % MCV 95.2 (80-100) fL MCH 32.4 (25-34) pg MCHC 34.1 (32-36) g/dL RDW Std Deviation 47.2 H (36.4-46.3) fL RDW Coeff of Ericka 13.6 (11.5-14.5) % Plt Count 231 (130-400) K/uL MPV 9.8 (7.4-10.4) fL Immature Gran % (Auto) 0.2 % Neut % (Auto) 84.0 % Lymph % (Auto) 10.1 % [place] % (Auto) 5.7 % Eos % (Auto) 0.0 % Baso % (Auto) 0.0 % Immature Gran # (Auto) 0.02 (0.00-0.02) K/uL Neut # (Auto) 8.04 H (1.4-6.5) K/uL Lymph # (Auto) 0.97 L (1.2-3.4) K/uL [place] # (Auto) 0.55 (0.11-0.59) K/uL Eos # (Auto) 0.00 (0-0.5) K/uL Baso # (Auto) 0.00 (0-0.2) K/uL Sodium 138 (136-145) mmol/L Potassium 4.6 D (3.5-5.1) mmol/L Chloride 107 (98-107) mmol/L Carbon Dioxide 24 (21-32) mmol/L Anion Gap 7.0 (3-11) BUN 13 (7-18) mg/dl Creatinine 0.86 (0.6-1.4) mg/dl Est Cr Clr Drug Dosing 122.8 ml/min Est GFR ( Amer) 113.9 Est GFR (Non-Af Amer) 98.3 BUN/Creatinine Ratio 14.7 (10-20) Glucose 123 H (70-99) mg/dl Calcium 9.2 (8.5-10.1) mg/dl Phosphorus 3.1 (2.5-4.9) mg/dl Magnesium 1.9 (1.8-2.4) mg/dl Total Bilirubin 0.8 D (0.2-1) mg/dl AST 77 H (15-37) U/L ALT 569 H (12-78) U/L Alkaline Phosphatase 140 H (45-117) U/L Total Protein 7.0 (6.4-8.2) gm/dl Albumin 3.5 (3.4-5.0) gm/dl Globulin 3.5 (2.5-4.0) gm/dl Albumin/Globulin Ratio 1.0 (0.9-2) Hep Bs Antigen (Neg) Hep Bs Antibody Hep Bs Antibody, Quant (>or=10mIU/mL Immune) mIU/mL Hep B Core IgM Ab Pending Hepatitis C Ab Screen (Neg) HCV RNA (PCR) IUs/ml Pending HCV RNA PCR log IUs/ml Pending 01/15/19 Range/Units 07:04 WBC (4.8-10.8) K/uL RBC (4.7-6.1) M/uL Hgb (14.0-18.0) g/dL Hct (42-52) % MCV (80-100) fL MCH (25-34) pg MCHC (32-36) g/dL RDW Std Deviation (36.4-46.3) fL RDW Coeff of Ericka (11.5-14.5) % Plt Count (130-400) K/uL MPV (7.4-10.4) fL Immature Gran % (Auto) % Neut % (Auto) % Lymph % (Auto) % [place] % (Auto) % Eos % (Auto) % Baso % (Auto) % Immature Gran # (Auto) (0.00-0.02) K/uL Neut # (Auto) (1.4-6.5) K/uL Lymph # (Auto) (1.2-3.4) K/uL [place] # (Auto) (0.11-0.59) K/uL Eos # (Auto) (0-0.5) K/uL Baso # (Auto) (0-0.2) K/uL Sodium (136-145) mmol/L Potassium (3.5-5.1) mmol/L Chloride (98-107) mmol/L Carbon Dioxide (21-32) mmol/L Anion Gap (3-11) BUN (7-18) mg/dl Creatinine (0.6-1.4) mg/dl Est Cr Clr Drug Dosing ml/min Est GFR ( Amer) Est GFR (Non-Af Amer) BUN/Creatinine Ratio (10-20) Glucose (70-99) mg/dl Calcium (8.5-10.1) mg/dl Phosphorus (2.5-4.9) mg/dl Magnesium (1.8-2.4) mg/dl Total Bilirubin (0.2-1) mg/dl AST (15-37) U/L ALT (12-78) U/L Alkaline Phosphatase (45-117) U/L Total Protein (6.4-8.2) gm/dl Albumin (3.4-5.0) gm/dl Globulin (2.5-4.0) gm/dl Albumin/Globulin Ratio (0.9-2) Hep Bs Antigen Neg (Neg) Hep Bs Antibody Non-Immune Hep Bs Antibody, Quant < 3.10 L (>or=10mIU/mL Immune) mIU/mL Hep B Core IgM Ab Hepatitis C Ab Screen Neg (Neg) HCV RNA (PCR) IUs/ml HCV RNA PCR log IUs/ml Diagnostic Findings US liver CLINICAL HISTORY: elevated LFTs elevated liver function tests COMPARISON STUDY: 01/14/2019 FINDINGS: Fatty replacement of the liver. This is unchanged compared to the prior study. Combination of gallstones and sludge within the gallbladder lumen. Common bile duct measures 4 mm. Right kidney is negative for hydronephrosis. Several small renal cyst measuring up to 1.2 cm. IMPRESSION: 1. Fatty replacement of the liver. 2. Gallstones and sludge within the gallbladder lumen. 3. Normal caliber bile ducts. 4. Several small renal cyst. No evidence for hydronephrosis. PG Care Time/CCT Total # of Minutes Spent Total Time Spent with Patient: Total time spent is greater than 50% in coordination of care (as documented) at patient's floor/unit and/or counseling patient:
[2019-01-15] MEDS: ENOXAPARIN INJ 40 MG/0.4 ML SYR SQ SCH (20:19)
[2019-01-15] MEDS ORDERED: AZITHROMYCIN 250 MG TAB PO SCH (21:00)
[2019-01-15] MEDS: cefTRIAXone SODIUM 2,000 MG in DEXTROSE 5% 50 ML IV SCH (22:22)
[2019-01-16] MEDS: LEVALBUTEROL HCL 1.25 MG/3 ML NEB NEB SCH ×3 (00:59→12:53)
[2019-01-16 03:46] LABS: Hepatitis B Core Antibody IgM NON-REACTIVE (NON-REACTIVE)
[2019-01-16] MEDS: methylPREDNISolone 40 MG in SYRINGE 0 ML IV SCH (06:07)
[2019-01-16 07:27] LABS: Eosinophils # (auto) 0.01 K/uL (0-0.5); Eosinophils % (auto) 0.1 %; Hematocrit (blood only) 41.5 % (42-52); Hemoglobin 13.9 g/dL (14.0-18.0); Immature Granulocytes # (auto) 0.02 K/uL (0.00-0.02); Immature Granulocytes % (auto) 0.2 %; Lymphocytes # (auto) 1.56 K/uL (1.2-3.4); Lymphocytes % (auto) 12.2 %; Mean Corpuscular Hemoglobin 32.2 pg (25-34); Mean Corpuscular Hgb Conc 33.5 g/dL (32-36); Mean Corpuscular Volume 96.1 fL (80-100); Monocytes % (auto) 6.2 %; Neutrophils # (auto) 10.42 K/uL (1.4-6.5); Neutrophils % (auto) 81.3 %; Platelet Count 232 K/uL (130-400); RDW Coefficient of Variation 13.6 % (11.5-14.5); RDW Standard Deviation 48.3 fL (36.4-46.3); Red Blood Count 4.32 M/uL (4.7-6.1); White Blood Count 12.81 K/uL (4.8-10.8)
[2019-01-16 08:00] LABS: Albumin Level 3.4 gm/dl (3.4-5.0); BUN Creatinine Ratio 20.7 (10-20); Bilirubin Direct 0.2 mg/dl (0-0.2); Calcium 9.2 mg/dl (8.5-10.1); Creatinine Clr Calc Pharmacy 108.3 ml/min; Est GFR (African American) 102.2; Est GFR (Non-African American) 88.1; Potassium 3.8 mmol/L (3.5-5.1)
[2019-01-16 08:02] LABS: Bilirubin,Total 0.6 mg/dl (0.2-1); Total Protein 6.8 gm/dl (6.4-8.2)
[2019-01-16] MEDS: FLUTICASONE HFA 110MCG INHALER INH SCH (08:32)
--- NOTE | 2019-01-16 13:43 | Discharge Summary ---
Date of Service January 16, 2019 Admission HPI Per Admitting Provider 53-year-old male presents with ongoing, perhaps acutely worsening, shortness of breath. - Patient says he was initially seen for this around its onset in the [facility] ED back in early October. Was diagnosed with bronchitis and discharged on prednisone. Patient says he is uninsured, [facility] and [facility] over the past few days because it never quite improved. He was referred here due to his current symptoms. - Patient presently notes an ongoing non-bloody and rarely productive cough, shortness of breath at baseline and worse with exertion, but no associated chest pain. - On review of systems, patient notes that he had about 8 hours worth of very watery non-bloody stools this past overnight. Denies any associated fevers, abdominal pain, or known new foods or sick contacts. He did have some mild nausea earlier this morning that resolved. Denied any emesis. - Furthermore, patient says that he has a history of a kidney stone for which she has seen urology. The renal ultrasound obtained today was prescheduled. He says that over the past 24 hours his urine is changed from a darker color to more clear. - Past medical history includes bronchitis, nephrolithiasis, hyperlipidemia, colon polyp, small hiatal hernia. - Past surgical history includes colonoscopy, left orbital fracture. - Social history includes smoking 1 pack/day for 25 years (but quit in Oct 2018) as well as chewing tobacco (ongoing). History of heavy alcohol use but quit in 1992. Denies illicit drug use. 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 Lives with parents. Principal Diagnosis Acute COPD Exacerbation Elevated LFTs, likely symptomatic cholelithiasis Discharge Exam Constitutional WD/WN, vitals as above Eyes + anicteric sclerae ENMT external ear and nose normal, oropharynx normal Neck trachea midline, no thyromegaly Respiratory normal respiratory effort; no labored breathing Auscultation: + wheezes (a few scattered exp wheezes,improved); no crackles and no rhonchi Cardiovascular RRR, no murmur, no edema Chest (Breasts) Chest: normal inspection of chest Gastrointestinal (Abdomen) normal bowel sounds, soft, nontender, no hepatosplenomegaly Musculoskeletal Extremities: extremities normal to inspection; no cyanosis and no clubbing Skin no rashes, warm and dry Neurologic moves all extremities and awake; no focal motor deficits Psychiatric A+Ox3, euthymic affect Lymphatic no lymphedema Discharge Data Allergies Allergy/AdvReac Type Severity Reaction Status Date / Time No Known Allergies Allergy Verified 01/21/19 13:23 Consultations None Procedures Performed CXR Ordered Studies 01/15/19 08:53 US liver Routine Hospital Course (1) Shortness of breath: 53-year-old male admitted on 14 January 2019 for shortness of breath and COPD exacerbation Some level of shortness of breath for the past 10 weeks, perhaps worse in the past couple of days prior to admission. No overt CP with this. Do not suspect ACS. Likely has completely uncontrolled COPD at this point, requiring both acute management and arranging close follow-up care. - In ED, afebrile, borderline regular tachycardia, not tachypneic, and normal room SpO2. WBC 8. Influenza negative. VBG was normal. EKG NSR 95, TnI negative. CXR clear. - In ED, treated with DuoNeb x3, Solu-Medrol 125 mg IV x1, and 500 mL NS IVF. PCT negative -now much improved after treatment with IV steroids, ATC nebulizers with bronchodilators, azithro Remains off O2 -convert to po prednisone taper upon discharge -continue azithromycin to complete a 5 day course after discharge -continue prn albuterol HFA after dc -Started flovent bid -continue tessalon perles prn cough -will need PFTs as outpt (2) COPD exacerbation: as above -quit smoking many years ago (3) Transaminitis: Transaminitis: Elevated AST, ALT, alk phos, and total bilirubin on admission. Normal INR. Hepatic steatosis seen on renal ultrasound. APAP negative With recurrent epigastric abd pain ongoing for 2 years Had EGD/colonoscopy that were with some polyps but not much to explain pain With LFTs continuing to be trending downward today, last episode of abd pain 2-3 days prior to admission, LFTs likely trending down after passage of gallstone RUQ US here with GB sludge and stones, no CBD dilatation -no need for urgent surgical evaluation for cholecystectomy especially in setting of acute COPD exacerbation -follow LFTs as outpatient -f/u results of hepatitis panel after discharge although unfortunately Hep A was not checked although doubtful he has Hep A -plan for Surgery eval as outpt for elective cholecystectomy unless develops recurrent abd pain here or has evidence of biliary obstruction (4) Cholelithiasis: as above, is symptomatic (5) Diarrhea: Diarrhea: Non-bloody watery diarrhea for about 8 hours prior to admission, could be related to gallstone passage as above -now resolved (6) Nephrolithiasis: Ongoing medical issues: - Nephrolithiasis, chronic outlet obstruction: Pre-scheduled renal ultrasound noted no evidence of hydronephrosis but does have bladder wall thickening. Has previously been on tamsulosin. -f/u as outpt (7) DVT prophylaxis: Code status: Full code. Diet: Regular. DVT prophy: Lovenox. Dispo: stable for dc to home Total Time Total Time Spent Total Time Spent (In Minutes): 35 min Total Time Includes: Examination of the Patient, Discharge Planning and Medica tion Reconciliation Discharge Plan Discharge Items Patient Disposition: Home - Self-Care Reason For Visit: COPD EXACERBATION, TRANAMINITIS Discharge Diagnosis: COD Exacerbation, Symptomatic cholelithiasis (gallstones) Condition on Discharge: Good Health Concerns: You have been hospitalized for an acute medical problem. During your stay at [facility], we have made an effort to correct the problem that brought you to the hospital while keeping you as comfortable as possible. Medications were used to bring your condition under control and your discharge instructions will include directions for any medications you should take after leaving the hospital. Please make sure you see your Primary Care Provider as part of your follow up plan. Activity: As commented below Lifting: Gradually increase as tolerated Bathing: No limitations Exercise/Sports: Gradually increase as tolerated Weightbearing: Full weightbearing Non-emergency contact: Primary Care Provider Call non-emergency contact if: you have any medication questions, your symptoms worsen, your pain is not controlled, your pain is worsening, your pain is unusual for you, your pain is concerning for you, you have a fever and your temperature is above 101 Follow-up/Referrals: Naldo Muniz, DO [Surgeon] - 01/21/19 1:00 pm (Please, follow up at [facility] General Surgery Office with Dr. Naldo Muniz, regarding your gallbladder, on MondayJanuary 21 at 1:00 pm. *The office is located at [address] [place] [address] in [place]. If you need to change this appointment, call the office at [phone].) Saloni Chow PA-C [Primary Care Provider] - 01/22/19 9:15 am (Please, follow up at [facility] with Saloni Chow PA-C on MondayJanuary 22 at 9:15 am. If you need to change this appointment, call the office at [phone].) Diet: Low Fat Addtl Attending Provider Instructions: You were admitted with bronchitis and wheezing thought to be secondary to an exacerbation of COPD (chronic obstructive pulmonary disease). It is important that you finish out the course of a prednisone taper and antibiotics for bronchitis. You should follow-up with your primary care physician and be tested for COPD as an outpatient. You are also found to have elevated liver tests secondary to recent passage of gallstones. You are not a good candidate to have a surgery at this point in time given your ongoing lung issues, but after your bronchitis resolves, he should see a surgeon and discuss having an elective cholecystectomy (gallbladder removal close). You were tested to see if he required oxygen prior to discharge and you did not. You can take the Tessalon Perles as needed for cough. You can use the albuterol inhaler as needed for shortness of breath or wheezing. He should use the fluticasone inhaler twice daily every day no matter what and rinse her mouth out afterwards. Please follow-up with your primary care physician within 1 week as scheduled for you. An appointment was also made with general surgeon for you. Pending Studies at Discharge: No Stand-Alone Forms: My [facility] Medications and DC Order Prescriptions: New benzonatate [Tessalon Perles] 100 mg Capsule 200 mg PO TID PRN (Reason: cough) Qty: 30 RF: 0 Flovent HFA 110 mcg/actuation Hfa Aerosol Inhaler 2 puff inhalation BID Qty: 12 RF: 0 albuterol sulfate 90 mcg/actuation HFA aerosol inhaler 2 puffs INH Q4 PRN (Reason: shortness of breath or wheezing) Qty: 18 RF: 0 prednisone 10 mg tablet 60 mg PO DAILY Qty: 42 RF: 0 Discharge Orders: Discharge Order (Routine); Ordered 01/16/19 Ordered By: Daly Darden Admission Data Admit Date/Time: 01/14/19 20:24 Attending Provider: Daly Darden Admit Provider: Gus Chaves Primary Care Provider: Saloni Chow Other Interventions: Discharge Summary Assessment (RN) Last Done: 01/16/19 13:43 DC Date/Time DO NOT enter until pt leaves facility: 01/16/19 14:22
[2019-01-17 13:59] LABS: Hepatitis C Vira RNA (Log) PCR <1.18 NOT DETECTED Log IU/mL (NOT DETECTED); Hepatitis C Viral RNA by PCR <15 NOT DETECTED IU/mL (NOT DETECTED)
== END 2019-01-16 14:22 | disposition home or self-care (01) | DRG 192 ==
LOC: ED 14:02 → SUATTDRO 20:24 → 2N 20:24